=== PATIENT | female | born 1965 | race Caucasian/White ===

== ENCOUNTER → 2016-06-30 | Outpatient (CLI) | payer OTHER ==
[~2016-06-30] VITALS: Ht 157.5 cm; Wt 76.9 kg
[~2016-06-30] MED LIST: ACET-1256 PO; ALBU18002 INH; ATOR-26 PO; CMD1 PO; DLN100 PO; ENOX40IN SQ; FURO-85 PO; GABA800T PO; GLC500 PO; GLIM2TAB2 PO; LEVE250T PO; LORA-741 PO; MELA1TAB5 PO; MELO7.5T5 PO; METF-384 PO; MOME200A INH; OXYBUTYNIN PO; OXYC-57 PO; OXYC1CAP5 PO; PANT40TA PO; PRLSR20 PO; SENN-65 PO; SERT-234 PO; TAMS0.4C38 PO; TGRUNK PO; TOPI1CAP3 PO
[2016-06-30 09:26] VITALS: BMI 38.0
[2016-06-30 09:47] VITALS: Ht 157.5 cm; Wt 76.9 kg
--- NOTE | 2016-06-30 10:28 | PAT Medication Instructions ---
Service Date Jun 30, 2016. Current Home Medication List Albuterol Sulfate (Proair Respiclick), 2 PUFF INH Q4 PRN for SOB/Wheezing Atorvastatin (Lipitor), 80 MG PO QAM Enoxaparin (Lovenox), 40 MG SQ QPM Furosemide (Lasix), 20 MG PO QAM Gabapentin (Neurontin), 800 MG PO BID Levetiracetam (Keppra), 500 MG PO BID Omeprazole (Prilosec), 20 MG PO QAM Phenytoin Sodium (Dilantin), 300 CAP PO TID Senna/Docusate Sod (Senokot S), 1 TAB PO PRN Tamsulosin Hcl (Flomax), 0.4 MG PO QPM Topiramate (Trokendi Xr), 100 MG PO BID [Oxybutynin], 5 MG PO BID Medication Instructions For Your Scheduled Surgery - Last dose 06/30/16 per prescribing physician's instructions: Enoxaparin (Lovenox), 40 MG SQ QPM - Hold the following medications the morning of surgery: Furosemide (Lasix), 20 MG PO QAM [Oxybutynin], 5 MG PO BID Senna/Docusate Sod (Senokot S), 1 TAB PO PRN - Take the following medications the morning of surgery with a sip of water OTHERWISE NOTHING TO EAT OR DRINK AFTER MIDNIGHT: Atorvastatin (Lipitor), 80 MG PO QAM Gabapentin (Neurontin), 800 MG PO BID Levetiracetam (Keppra), 500 MG PO BID Phenytoin Sodium (Dilantin), 300 CAP PO TID Topiramate (Trokendi Xr), 100 MG PO BID Omeprazole (Prilosec), 20 MG PO QAM Albuterol Sulfate (Proair Respiclick), 2 PUFF INH Q4 PRN for SOB/Wheezing (use if needed; BRING TO HOSPITAL) - Take the following medications as scheduled the night before surgery: Gabapentin (Neurontin), 800 MG PO BID Levetiracetam (Keppra), 500 MG PO BID [Oxybutynin], 5 MG PO BID Phenytoin Sodium (Dilantin), 300 CAP PO TID Topiramate (Trokendi Xr), 100 MG PO BID Tamsulosin Hcl (Flomax), 0.4 MG PO QPM Senna/Docusate Sod (Senokot S), 1 TAB PO PRN Albuterol Sulfate (Proair Respiclick), 2 PUFF INH Q4 PRN for SOB/Wheezing If you have any questions please call us at [phone] or [phone] or [phone]
[2016-06-30 10:55] LABS: BASO % 0.6 %; BASO ABS # 0.03 K/uL (0-0.2); COMPLETE YES; EOS % 3.9 %; HEMATOCRIT 41.1 % (37-47); IG% 0.2 %; LYMPH % 43.3 %; LYMPH ABS # 2.36 K/uL (1.2-3.4); MEAN CELL VOLUME 95.8 fL (80-100); MEAN CORPUSCULAR HEMOGLOBIN 31.7 pg (25-34); MEAN CORPUSCULAR HGB CONC 33.1 g/dl (32-36); MEAN PLATELET VOLUME 8.8 fL (7.4-10.4); MONO % 12.5 %; NEUT % 39.5 %; PLATELET COUNT 253 K/uL (130-400); RED BLOOD COUNT 4.29 M/uL (4.2-5.4); WHITE BLOOD COUNT 5.45 K/uL (4.8-10.8)
[2016-06-30 12:41] LABS: BUN/CREATININE RATIO 13.7 (10-20); CALCIUM 9.1 mg/dl (8.5-10.1); CREATININE 0.78 mg/dl (0.60-1.20)
== END | disposition home or self-care (01) ==
LOC: C.LAB 08:00 → EDSTATUS 07-07 07:30
PROVIDERS: ATTEND Orthopaedic Surgery Sports Medicine
DX: Z01.818 Encounter for other preprocedural examination (principal)

== ENCOUNTER → 2016-12-18 | Day surgery (SDC) | payer OTHER ==
[2016-12-12 10:32] VITALS: BMI 35.0
--- NOTE | 2016-12-12 11:48 | PAT Medication Instructions ---
Service Date Dec 12, 2016. Current Home Medication List Atorvastatin (Lipitor), 80 MG PO QAM Gabapentin (Neurontin), 800 MG PO BID Levetiracetam (Keppra), 500 MG PO BID Omeprazole (Prilosec), 20 MG PO QAM Oxycodone Hcl (Oxycodone Hcl), 1 CAP PO Q8 PRN for Pain Phenytoin Sodium (Dilantin), 300 MG PO TID Senna/Docusate Sod (Senokot S), 1 TAB PO PRN Tamsulosin Hcl (Flomax), 0.4 MG PO QPM Topiramate (Trokendi Xr), 100 MG PO BID [Oxybutynin], 5 MG PO BID Medication Instructions For Your Scheduled Surgery - Hold the following medications the morning of surgery: Senna/Docusate Sod (Senokot S), 1 TAB PO PRN - Take the following medications the morning of surgery with a sip of water OTHERWISE NOTHING TO EAT OR DRINK AFTER MIDNIGHT: Atorvastatin (Lipitor), 80 MG PO QAM [Oxybutynin], 5 MG PO BID Phenytoin Sodium (Dilantin), 300 MG PO TID Topiramate (Trokendi Xr), 100 MG PO BID Gabapentin (Neurontin), 800 MG PO BID Levetiracetam (Keppra), 500 MG PO BID Oxycodone Hcl (Oxycodone Hcl), 1 CAP PO Q8 PRN for Pain (may take if needed up to 4 hours prior to surgery) Omeprazole (Prilosec), 20 MG PO QAM - Take the following medications as scheduled the night before surgery: [Oxybutynin], 5 MG PO BID Phenytoin Sodium (Dilantin), 300 MG PO TID Topiramate (Trokendi Xr), 100 MG PO BID Gabapentin (Neurontin), 800 MG PO BID Levetiracetam (Keppra), 500 MG PO BID Oxycodone Hcl (Oxycodone Hcl), 1 CAP PO Q8 PRN for Pain Tamsulosin Hcl (Flomax), 0.4 MG PO QPM Senna/Docusate Sod (Senokot S), 1 TAB PO PRN If you have any questions please call us at [phone] or [phone] or [phone]
[2016-12-12 12:44] LABS: BASO % 0.5 %; BASO ABS # 0.03 K/uL (0-0.2); COMPLETE YES; EOS % 3.5 %; HEMATOCRIT 42.2 % (37-47); IG% 0.2 %; LYMPH % 39.9 %; MEAN CELL VOLUME 93.6 fL (80-100); MEAN CORPUSCULAR HGB CONC 33.2 g/dl (32-36); MEAN PLATELET VOLUME 9.3 fL (7.4-10.4); MONO % 10.1 %; NEUT % 45.8 %; PLATELET COUNT 251 K/uL (130-400); RED BLOOD COUNT 4.51 M/uL (4.2-5.4); WHITE BLOOD COUNT 6.02 K/uL (4.8-10.8)
[2016-12-12 12:50] LABS: ESTIMATED AVERAGE GLUCOSE 120 mg/dl; HA1C FLAG Normal (Normal)
[2016-12-12 12:51] LABS: INR 0.9 (0.9-1.1); PARTIAL THROMBOPLASTIN RATIO 1.1; PROTHROMBIN TIME (PATIENT) 10.1 SECONDS (9.0-12.0)
[2016-12-12 12:53] LABS: URINE APPEARANCE CLEAR (CLEAR); URINE BILIRUBIN NEG (NEG); URINE COLOR YELLOW; URINE EPITHELIAL CELL AUTO 20-30 /lpf (0-5); URINE NITRITE NEG (NEG); URINE SPECIFIC GRAVITY 1.016 (1.000-1.030); UROBILINOGEN NEG (NEG); ZZUR CULT IF INDIC CLEAN CATCH NO
[2016-12-12 12:55] LABS: BUN/CREATININE RATIO 12.5 (10-20); CALCIUM 9.1 mg/dl (8.5-10.1); CREATININE 0.91 mg/dl (0.60-1.20); POTASSIUM 4.3 mmol/L (3.5-5.1)
[2016-12-12 12:59] LABS: MANUAL MICROSCOPIC REQUIRED? NO; REVIEW REQ? NO
--- NOTE | 2016-12-12 15:52 | Anesthesiology Progress Note ---
Anesthesia Progress Note Date of Service Dec 12, 2016. (Katherine Roberts ., JEFFREYC) Progress Notes Pt seen in PAT in preparation for R shoulder scope with planned for 12/18/16. Upon entering pt room, pt recognized that I was the PA who had seen her earlier this year (pt was seen for PAT for ankle surgery with ) when she was cx 04/06 no medical clearance and Anesthesia had recommended that she wait 9 months post CVA and recommended pt had Cardio eval prior to elective surgery. I asked pt if she had seen Cardio and her response was 'I have medical clearance... all I need is medical clearance.' She seemed to become agitated that I asked about a Storm Door Maker. I reviewed the information that was faxed for at pt's previous PAT visit in [facility] and noticed that CVA was 05/10/16. When I asked her to confirm this date, she became increasingly agitated and stated that her stroke was 'not a problem'. I told her that our Anesthesia guidelines were simply in place for her safety and quickly offered that an Anesthesiologist could come to speak with her regarding this. She accepted that offer. I told her that while I was in her chart, I would see if we had copies of the EKG and CXR that we had faxed for when she was previously here for her PAT visit so that we could possibly prevent her having to repeat those today. I quickly found said testing and when I told her that I had found it, she became more upset and asked why the guidance secretary and the nurse were not able to find the testing. She began to curse and question my competence, so I closed her chart and told her that the physician would be in to speak with her shortly. I then contacted Dr.Patrick Quinones, who came to speak with pt, and also reported this incident to Chikis Lopez. (Katherine Roberts ., JEFFREYC) I saw the patient with FADUMO Thomson today. The patient was agitated and adamant that she wanted to have her shoulder surgery. Upon review of her records, she does have a remote history of LA and is being treated for dyslipidemia with atorvastatin. Her echocardiogram from June 2016 was normal. The patient has good functional status as she can walk two flights of stairs with no problems. An EKG from today showed normal sinus rhythm. 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 The facial paralysis resolved after 60 days according to the patient. The patient's seizures have been controlled on medication since that time. Since the stroke was over six months ago but less than nine months ago, I told the patient that she was an acceptable risk for surgery, but ideally she should wait nine months until February to have surgery. She stated that she was in a great deal of pain and would accept any increased risk of stroke to have her surgery next week. The patient stated that she would be okay with staying the night after the procedure if necessary. The patient calmed down after being told that her surgery may proceed next week barring any new change in her health until that time. (Jalil Quinones M.D.)
--- NOTE | 2016-12-17 16:26 | HISTORY & PHYSICAL EXAMINATION ---
DATE OF ADMISSION: 12/18/2016 CHIEF COMPLAINT: Chronic right shoulder pain. HISTORY OF PRESENT ILLNESS: This is a 51-year-old female patient of Dr. Vela, complaining of chronic right shoulder pain, longstanding, now progressively getting worse. She has been diagnosed with AC arthritis, rotator cuff tear and impingement. She wishes to proceed with a right shoulder arthroscopic subacromial decompression, distal clavicle excision and possible right rotator cuff debridement versus repair. PAST MEDICAL HISTORY: Hypercholesterolemia, anxiety, history of a mini stroke, carpal tunnel syndrome, history of seizure activity, acid reflux, and obesity. SOCIAL HISTORY: She is a half pack per day smoker. Nonalcohol drinker. PAST SURGICAL HISTORY: Negative. ALLERGIES: No known drug allergies. MEDICATIONS: Include, 1. Atorvastatin 80 mg daily. 2. Furosemide 20 mg daily. 3. Gabapentin 800 mg b.i.d. 4. Nitrostat 50 million units 4 times daily to affected area. 5. Oxybutynin 5 mg b.i.d. 6. Omeprazole 20 mg daily. 7. Polyethylene glycol 1 packet daily as needed with water. 8. Senna with docusate sodium as needed b.i.d. 9. Tamsulosin 0.4 mg daily. 10. Topamax 100 mg 1-1/2 tablet b.i.d. 11. Keppra 500 mg 1 tablet b.i.d. 12. Oxycodone 5 mg as needed. ALLERGIES: INCLUDE BACTRIM, TYLENOL, HYDROCODONE, TRAMADOL AND PROPOXYPHENE. PHYSICAL EXAMINATION: GENERAL: Well-developed and well-nourished 51-year-old female in no acute distress. She is alert and oriented x3 and pleasant. HEENT: Normocephalic and atraumatic. Extraocular motions are intact. Pupils are equal and reactive to light. HEART: Regular rate and rhythm. No murmurs appreciated. LUNGS: Clear. ABDOMEN: Soft and nontender. Bowel sounds present. EXTREMITIES: Right shoulder reveals positive AC joint tenderness. She has impingement maneuvering with increased pain with Neer and impingement maneuvering. PLAN: The patient was advised of her diagnoses. Indications, risks, benefits, and postop course have all been reviewed. The patient wishes to proceed with a right shoulder arthroscopic subacromial decompression, distal clavicle excision, and possible debridement versus repair of rotator cuff. Necessary consent forms, preoperative testing and clearances will be obtained.
[~2016-12-18] VITALS: Ht 157.5 cm; Wt 88.7 kg
[~2016-12-18] MED LIST changes: -ACET-1256 PO; +ACETAMINOPHEN 1000 MG/100 ML IV IV ONE; -ALBU18002 INH; +ATROPINE SULFATE 0.1 MG/ML 5ML SYR IV PRN; -CMD1 PO; -ENOX40IN SQ; +EpHEDrine SULFATE INJ 50 MG/ML AMP IV PRN; +EpINEphrine HCL INJ 1 MG/ML 5ML SYRINGE ONE; +FENTANYL CITRATE INJ 50 MCG/1 ML 2 ML VIAL ONE; -FURO-85 PO; -GLC500 PO; -GLIM2TAB2 PO; +GLYCOPYRROLATE INJ 0.2 MG/ML VIAL ONE; +HYDR4TAB78 PO; +LACTATED RINGER'S 1000ML 1,000 ML IV SCH; -LORA-741 PO; -MELA1TAB5 PO; -MELO7.5T5 PO; -METF-384 PO; +MIDAZOLAM HCL 1 MG/ML 2ML VIAL ONE; -MOME200A INH; +NEOSTIGMINE METHYLSULFATE 5 MG/5 ML SYR ONE; +ONDANSETRON INJ 2 MG/ML 2 ML VIAL IV PRN; -OXYC-57 PO; -PANT40TA PO; +PROM1TAB6 PO; +PROPRANOLOL HCL 1 MG/ML 1 ML VIAL IV ONE; +ROCURONIUM BROMIDE 10 MG/ML 5 ML VIAL IV ONE; +ROPIVACAINE 0.5% 5 MG/ML 30 ML VIAL ONE; -SERT-234 PO; +SODIUM CHLORIDE 0.9% 1000ML 1,000 ML IV SCH; -TGRUNK PO; +VANCOMYCIN 1GM/270ML NSS IV SCH
[2016-12-18 08:51] VITALS: Ht 157.5 cm; Wt 88.7 kg
[2016-12-18 08:54] VITALS: BP 112/56; PULSE 75; TEMP 36.4; O2SAT 97
--- NOTE | 2016-12-18 09:23 | History & Physical Bridge Note ---
H&P Re-Evaluation Bridge Note: I have examined the patient, reviewed the History & Physical and in the interval since the performance of the History & Physical I have noted the following changes of clinical significance: No changes noted
--- NOTE | 2016-12-18 12:54 | [facility] Post Operative Brief Note ---
Immediate Operative Summary Operative Date Dec 18, 2016. Pre-Operative Diagnosis right acromioclavicular arthritis, right rotator cuff tear and impingement Post-Operative Diagnosis right acromioclavicular arthritis, right rotator cuff tear and impingement,degeneration labrum and synovitis Procedure(s) Performed Right shoulder arthroscopic subacromial decompression, distal clavicle excision, rotator cuff repair,debridement rtc, labrum, synovium ,bursa. Surgeon Dr. Tyrese Vela Workers Compensation Paralegal Surgeon(s) Anderson Solorio PA-C Estimated Blood Loss 5cc Findings as above Specimens none, Per Surgeon Anesthesia general and regional Complication(s) None Disposition Surgical ICU
--- NOTE | 2016-12-18 12:58 | Discharge Instructions ---
Discharge Instructions Date of Service Dec 18, 2016. Admission Reason for Admission: Right Shoulder Impingement Syndrome, Rtc Tear, Djd Discharge Discharge Diagnosis / Problem: Right shoulder Rotator cuff repair, decompression, distal clavicle Discharge Goals Goal(s): Improve function Activity Recommendations Activity Limitations: as noted below . Instructions / Follow-Up Instructions / Follow-Up Please see printed Home Instructions and Home Exercises in chart. No formal PT needed until follow up in office. Follow up w Dr. Vela 10-12 days post op as scheduled, call [phone] to confirm. Current Hospital Diet Patient's current hospital diet: Discharge Diet Recommended Diet: Regular Diet Procedures Procedures Performed: Right shoulder arthroscopic subacromial decompression, distal clavicle excision , rotator cuff repair Pending Studies Studies pending at discharge: no Laboratory Results Hemoglobin A1c Test 12/12/16 11:50 Range/Units Estimated Average Glucose 120 mg/dl Hemoglobin A1c 5.8 H 4.5-5.6 % Medical Emergencies . Who to Call and When: Medical Emergencies: If at any time you feel your situation is an emergency, please call 911 immediately. . Non-Emergent Contact Non-Emergency issues call your: Primary Care Provider . "Provider Documentation" section prepared by Anderson Solorio. . VTE Core Measure Inpt VTE Proph given/why not?: SCD's [place] Drug Monitoring Program Search Results: patient reviewed within database, no issues identified
[2016-12-18] MEDS: FENTANYL CITRATE INJ 50 MCG/1 ML 2 ML VIAL IV PRN ×2 (13:11→13:16)
[2016-12-18 13:45] VITALS: BP 91/53; PULSE 62; TEMP 36.6; O2SAT 92
[2016-12-18 14:14] VITALS: BP 101/52; PULSE 67; O2SAT 98
--- NOTE | 2016-12-18 14:29 | Anesthesiology Progress Note ---
Anesthesia Post Op Note Date & Time Dec 18, 2016 at 14:28 Vital Signs Pain Intensity: 3 Vital Signs Past 12 Hours Date Time Temp Pulse Resp B/P (MAP) Pulse Ox O2 Delivery O2 Flow Rate FiO2 12/18/16 14:14 67 16 101/52 98 Room Air 12/18/16 13:45 36.6 62 16 91/53 92 Room Air 12/18/16 13:30 36.0 70 20 100/64 93 Room Air 12/18/16 13:20 70 20 109/62 100 Room Air 12/18/16 13:10 67 20 93/55 100 Oxymask 10 12/18/16 13:00 70 20 113/46 100 Oxymask 10 12/18/16 12:50 36.3 75 12 87/58 100 Oxymask 10 12/18/16 08:54 36.4 75 18 112/56 (74) 97 Room Air Notes Mental Status: alert / awake / arousable, participated in evaluation Pt Amnestic to Procedure: Yes Nausea / Vomiting: adequately controlled Pain: adequately controlled Airway Patency, RR, SpO2: stable & adequate BP & HR: stable & adequate Hydration State: stable & adequate Anesthetic Complications: no major complications apparent
[2016-12-18 14:45] VITALS: BP 100/57; PULSE 67; TEMP 36.5; O2SAT 94
--- NOTE | 2016-12-18 20:28 | OPERATIVE REPORT ---
DATE OF OPERATION: 12/18/2016 INDICATION FOR PROCEDURE: The patient is a 51-year-old female with chronic right shoulder pain, failed conservative management. Her radiographs demonstrate type 3 acromion with AC joint arthritis. Could not get an MRI due to spinal stimulator. She ____ chronic pain and suspected rotator cuff tear. PREOPERATIVE DIAGNOSES: Right shoulder impingement syndrome, acromioclavicular joint arthritis and likely rotator cuff tear. POSTOPERATIVE DIAGNOSES: Right shoulder subacromial impingement, hypertrophic acromioclavicular joint arthritis contributing to impingement with high-grade bursal sided rotator cuff tear with partial undersurface intraarticular rotator cuff tear, supraspinatus with synovitis around the subscapularis tendon, and a type 1 degenerative superior labrum anterior to posterior tear, superior labrum only. PROCEDURE: Arthroscopy of the right shoulder with arthroscopic rotator cuff repair and extensive debridement including debridement of the partial tear rotator cuff, glenoid labrum, subacromial bursa, bursal sided rotator cuff tear, and also subacromial decompression and distal clavicle excision. SURGEON: Dr. Vela. AUTOMOBILE SERVICE ADVISOR: Anderson Solorio PA-C. ANESTHESIA: Regional block and general. OPERATIVE PROCEDURE: The patient was taken to the operating room, anesthetized with regional block and general anesthetic. [facility] 70-degree beach chair position and right shoulder was examined under anesthesia. She had a moderately obese arm but good passive range of motion. Her right shoulder was sterilely prepped and draped with ChloraPrep. Arthroscopy started with posterior arthroscopy portal in the soft spot, anterior portal in the rotator interval, lateral portal in the subacromial space, and superior lateral portal for suture anchor placement. Intraarticular findings demonstrated that she had a frayed labrum from anterior superior to posterior superior. It was just some inner margin fraying and she had negative peel back sign and superior labrum anchor was intact. The biceps tendon was intact. There was a large collection of synovial tissue around the anterior edge of the subscapularis tendon. The undersurface of the supraspinatus had some partial undersurface tearing with a flap that was fairly superficial as there was minimal exposed bone on the greater tuberosity attachment of the supraspinatus area where the tear was. The articular surfaces were intact and in good condition. In the subacromial space, she had a large spur in the anterior acromion with type 3 acromion and inferior AC joint causing prominent impingement and some grade 4 changes in the posterior inferior aspect of the distal clavicle. The rotator cuff had significant tendinopathic fraying on the bursal surface. There was a high-grade bursal sided flap of the supraspinatus which was about a centimeter, 12 mm in width. This was clearly torn off the greater tuberosity with some exposed bone there. There was chronic subacromial bursitis noted as well. Starting in the glenohumeral joint, I debrided along the superior labrum from anterior to posterior. I debrided the flap tear of the supraspinatus back to intact stable fibers. I debrided the synovitis in the undersurface of the cuff and around the upper subscapularis tendon. Then, in the subacromial space, I did a thorough bursectomy, removed all pathological bursa using the resector blade and using a radiofrequency ablator. We ablated the undersurface of the acromion process, ablated the inferior AC joint capsule, exposed 1 cm of distal clavicle. CA ligament was released off the spur of the anterior acromion. There was also some lateral spurring on the acromion that we ablated some of soft tissue to expose that as well. I then used the 4.5 resector blade to debride the tendinopathic cuff, debride the interval between the intact underlying cuff of the rotator cuff and the superior flap into some of the intratendinous degenerative tissue. Then, we debrided the footprint of the supraspinatus lateral to the intact fibers of the supraspinatus tendon fibers down to bone to get a bleeding surface for repair. At this point, I used a 5.5 bur to plane down the acromion to a type 1 flat shape, resect 1 cm of distal clavicle, and then repaired the rotator cuff using an Ultrabraid tape used as a rip-stop suture. This was first passed in a horizontal mattress fashion and then I placed a 2.8 mm Q-Fix suture anchor at the lateral footprint of the supraspinatus. Two sutures were placed in a simple fashion around the rip-stop tape suture, placed them deep into the partial tear as we could, limited by the depth of the tear. Then, the Q-Fix suture anchors were tied with the Haakon sliding locking knot, 3 reverse half hitches in alternating posts in simple fashion with excellent anglican of normal tension of the rotator cuff back to the greater tuberosity. Then, we used the tapes and 5.5 footprint lateral causing compression across the tear and take tension off the simple suture repair ____. These were placed into a 5.5 footprint. They were tensioned appropriately and the anchor was tightened. Excess suture was removed. Then, the portal sites were closed with nylon sutures. Sterile dressings were applied. An abduction pillow and sling immobilizer applied. Anderson Solorio PA-C, was my service assistant. He functioned as service assistant throughout the entire procedure. He assisted in patient positioning, prepping, draping, arm positioning, suture management during the repair, and he performed skin closure, dressings, pillow and sling application, and will participate in postoperative care of the patient. I attest to the content of the Intraoperative Record and any orders documented therein. Any exception s are noted below.
== END | disposition home or self-care (01) ==
LOC: C.ACU 08:12
PROVIDERS: ATTEND Orthopaedic Surgery Sports Medicine
DX: M75.41 Impingement syndrome of right shoulder (principal); M19.011 Primary osteoarthritis, right shoulder; M75.112 Incomplete rotator cuff tear or rupture of left shoulder, not specified as traumatic; M65.812 Other synovitis and tenosynovitis, left shoulder; S43.492A Other sprain of left shoulder joint, initial encounter; X58.XXXA Exposure to other specified factors, initial encounter; E78.00 Pure hypercholesterolemia, unspecified; K21.9 Gastro-esophageal reflux disease without esophagitis; F41.9 Anxiety disorder, unspecified; E66.9 Obesity, unspecified; Z86.73 Personal history of transient ischemic attack (TIA), and cerebral infarction without residual deficits; Z79.899 Other long term (current) drug therapy